=== PATIENT | female | born 1980 | race Hispanic/Latino ===

== ENCOUNTER → 2022-01-28 | Outpatient (CLI) | payer OTHER | END | disposition home or self-care (01) | LOC: RAH 09:38 | PROVIDERS: ATTEND Nurse Practitioner Adult Health | DX: Z12.31 Encounter for screening mammogram for malignant neoplasm of breast (principal); R92.1 Mammographic calcification found on diagnostic imaging of breast | CPT/HCPCS: 77067 ==

== ENCOUNTER → 2025-02-05 | Outpatient (CLI) | payer OTHER | END | disposition home or self-care (01) | LOC: RAH 16:01 | PROVIDERS: ATTEND Nurse Practitioner Adult Health | DX: Z12.31 Encounter for screening mammogram for malignant neoplasm of breast (principal) | CPT/HCPCS: 77067 ==